=== PATIENT | female | born 1930 | race Caucasian/White ===

== ENCOUNTER 2018-09-03 14:12 | Inpatient (IN) | payer MEDICARE, OTHER ==
[~2018-09-03] VITALS: Ht 162.6 cm; Wt 80.3 kg
[~2018-09-03 14:12] MED LIST: ACET250 PO; ALBIPROI INH; Aspirin EC325 MG PO; BUME2 PO; CHOL10002 PO; CYAN1000 PO; DIGO.125 PO; DILT30 PO; DOXE0.5 PO; ESOM20 PO; HYDACE5 PO; Hydrocodone-Ap1 EA20 PO; IBUP800; LEVFLO250 PO; METH10; METH10 PO; METO100ER PO; METO2.5 PO; METO25ER PO; Macrodantin100 MG PO; Mobic15 MG PO; OMEP20ER; OXYACE5T PO; POTCHL10ER; POTCHL20ER PO; PREG50 PO; ROSU5 PO; SPIR25 PO; TRAZ100; TRAZ100 PO; XARELTO15 MG PO; [UNRECOGNIZED DRUG - OTHER]
[2018-09-03] MEDS ORDERED: Fentanyl1 EACH TD (14:31)
[2018-09-03] MEDS ORDERED: METO2.5 PO (14:31)
[2018-09-03] MEDS ORDERED: CIPR250 PO (14:31)
[2018-09-03] MEDS ORDERED: Pantoprazole So40 MG PO (14:32)
[2018-09-03] MEDS ORDERED: VENL37.5 PO (14:33)
[2018-09-03 14:55] LABS: BASOPHILS ABSOLUTE AUTO 0.02 K/mm3 (0.00-0.23); BASOPHILS PERCENT AUTO 0 % (0-2); EOSINOPHILS ABSOLUTE AUTO 0.08 K/mm3 (0.00-0.68); EOSINOPHILS PERCENT AUTO 1 % (0-6); Hematocrit 43.5 % (33.0-51.0); Hemoglobin 13.7 g/dL (11.5-16.0); IMMATURE GRAN ABSOLUTE AUTO 0.03 K/mm3 (0.00-0.10); IMMATURE GRAN PERCENT AUTO 0 % (0-1); LYMPHOCYTES ABSOLUTE AUTO 1.44 K/mm3 (0.84-5.20); LYMPHOCYTES PERCENT AUTO 16 % (21-46); MONOCYTES ABSOLUTE AUTO 0.97 K/mm3 (0.16-1.47); MONOCYTES PERCENT AUTO 11 % (4-13); Mean Corpuscular HGB 28.7 pg (26.0-34.0); Mean Corpuscular HGB Conc 31.5 g/dL (31.5-36.5); Mean Corpuscular Volume 91 fL (80-100); Mean Platelet Volume 10.5 fL (9.1-12.4); NEUTROPHILS ABSOLUTE AUTO 6.48 K/mm3 (1.96-9.15); NEUTROPHILS PERCENT AUTO 72 % (41-73); NRBC ABSOLUTE 0.04 K/mm3 (0.00-0.02); NRBC Auto 0.4 /100 WBC (0.0-0.2); Platelet Count 233 K/mm3 (150-400); RDW Coefficient Variation 14.1 % (11.7-14.2); RDW Standard Deviation 46.7 fL (35.1-46.3); Red Blood Cell Count 4.77 M/mm3 (3.80-5.20); White Blood Cell Count 9.02 K/mm3 (4.00-11.30)
[2018-09-03 15:15] LABS: Albumin, Blood 3.4 g/dL (3.4-5.0); Bilirubin, Total 1.8 mg/dL (0.1-1.0); Bun/Creatinine Ratio 28.4 (12.0-20.0); Calcium, Blood 8.5 mg/dL (8.5-10.1); Creatinine, Blood 1.41 mg/dL (0.40-1.00); Globulin, Blood 3.4 g/dL (2.2-4.0); Potassium, Blood 4.9 mmol/L (3.5-5.5); Total Protein, Blood 6.8 g/dL (6.4-8.2); Troponin I 0.037 ng/mL (0.000-0.040)
[2018-09-04 04:56] LABS: Hematocrit 40.7 % (33.0-51.0); Hemoglobin 12.7 g/dL (11.5-16.0); Mean Corpuscular HGB 28.4 pg (26.0-34.0); Mean Corpuscular HGB Conc 31.2 g/dL (31.5-36.5); Mean Corpuscular Volume 91 fL (80-100); NRBC ABSOLUTE 0.02 K/mm3 (0.00-0.02); NRBC Auto 0.2 /100 WBC (0.0-0.2); Platelet Count 236 K/mm3 (150-400); RDW Coefficient Variation 14.3 % (11.7-14.2); RDW Standard Deviation 46.8 fL (35.1-46.3); Red Blood Cell Count 4.47 M/mm3 (3.80-5.20); White Blood Cell Count 8.01 K/mm3 (4.00-11.30)
[2018-09-04 05:14] LABS: Albumin, Blood 3.1 g/dL (3.4-5.0); Bilirubin, Total 1.9 mg/dL (0.1-1.0); Bun/Creatinine Ratio 26.3 (12.0-20.0); Calcium, Blood 8.6 mg/dL (8.5-10.1); Creatinine, Blood 1.18 mg/dL (0.40-1.00); Globulin, Blood 3.1 g/dL (2.2-4.0); Potassium, Blood 4.4 mmol/L (3.5-5.5); Total Protein, Blood 6.2 g/dL (6.4-8.2)
--- NOTE | 2018-09-04 07:00 | NUR ---
SHIFT SUMMARY- PT HAS REMAINED AOX4 THROUGHOUT SHIFT WITH EPISODES OF FORGETFULLNESS- MOSTLY UPON WAKING. PLEASANT AND COOPERATIVE WITH CARE. HEART RATE HAS REMAINED TACHYCARDIC THROUGHOUT THE NIGHT, CARDIZEM DRIP TITRATED PER PROTOCOL AND CURRENTLY RUNNING AT 10 MG/HR. O2 SATS HAVE REMAINED >90% THROUGHOUT SHIFT ON RA. LUNG SOUNDS REMAINED CLEAR IN UPPER LOBES, DIMINISHED WITH CRACKLES TO RLL. PT HAS REMAINED MOSTLY INCONTINENT OF URINE, AMBULATING TO [facility] ONCE WITH ONE PERSON ASSIST AND FWW. PT IS VERY WEAK, BUT REPORTS THAT SHE IS CLOSE TO BASELINE STRENGTH. 3+ NON-PITTING EDEMA TO BLE'S. PT MEDICATED FOR PAIN TO HER CALVES ONCE THIS AM THAT DECREASED WITH ORDERED MEDICATIONS, NO SIGNS OF DVT NOTED- PT REPORTS SHE GETS FREQUENT LEG CRAMPS AT BASELINE. NO OTHER CHANGES NOTED FROM INITIAL ASSESSMENT. WILL CONTINUE TO MONITOR AND REPORT TO ONCOMING SHIFT RN. BED IN LOW POSITION, CALL LIGHT IN REACH. BED ALARM SET FOR SAFETY.
--- NOTE | 2018-09-04 08:56 | NUR ---
ECHOCARDIOGRAM COMPLETE
--- NOTE | 2018-09-04 11:12 | NUR ---
Assumed Care: Assumed care of pt at approx 0700. VSS. In no apparent sign of distress. Pt is A&Ox4 - but forgets limitations, so bed alarm is on. Pt had echocardiogram done this AM. Dr. Rivas called to state that echo results appeard very likely that the pt has a PE - notified Dr. Catalan who will take a look at the echo results, but pt is already on xarelto for her chronic Afib, and Dr. Catalan feels that it would be highly unlikely that the pt has a PE. Pt is not hypoxic and breathing is e/u on RA. Pt c/o some mild SOB this AM d/t "all of the activity". Pt on cardizem gtt at 10mg/hr. Titrated down and given PO metoprolol per orders. Attempt to titrate off cardizem per Dr. Catalan after giving PO metoprolol. Pt currently resting in bed with call light within reach. Denies any further questions, complaints or requests at this time. Will continue to monitor.
--- NOTE | 2018-09-04 17:05 | NUR ---
Shift Summary No acute changes since initial shift assessment. VSS. In no apparent sign of distress. Pt is A&Ox4, but has been forgetful at times t/o the shift. Caregiver at bedside. Cardizem recently turned off per Dr. Catalan (see EMAR). Pt denies any other acute complaints or events t/o the shift. Pt is currently resting in bed with call light within reach. Pt has had an otherwise uneventful day. Lower venous duplex scan was negative for blood clots. Pt denies any further questions, complaints or requests at this time. Will continue to monitor until report is given to raul LEMON.
[2018-09-05 05:40] LABS: HBSAG SCREEN Negative (Negative); HEP A AB, IGM Negative (Negative); HEP B CORE AB, IGM Negative (Negative); HEP C VIRUS AB <0.1 (0.0-0.9)
[2018-09-05 05:46] LABS: Anion Gap 9 mmol/L (6-16); Blood Urea Nitrogen 24 mg/dL (8-24); Bun/Creatinine Ratio 26.3 (12.0-20.0); CO2, Blood 25 mmol/L (21-32); Calcium, Blood 8.5 mg/dL (8.5-10.1); Chloride, Blood 100 mmol/L (98-108); Creatinine, Blood 0.91 mg/dL (0.40-1.00); Glomerular Filtration Rate >60 (60-); Glucose, Blood 133 mg/dL (70-99); Potassium, Blood 5.1 mmol/L (3.5-5.5); Sodium, Blood 134 mmol/L (136-145)
--- NOTE | 2018-09-05 06:34 | NUR ---
SHIFT SUMMARY- PT HAS REMAINED AOX4 THROUGHOUT SHIFT WITH SOME EPISODES OF DISORIENTATION UPON WAKING; RE-ORIENTS EASILY. VSS. PLEASANT AND COOPERATIVE WITH CARE. PT HAS REMAINED ON BEDREST THROUGHOUT THE NIGHT AND HAS SLEPT FOR MUCH OF SHIFT, WAKING EASILY FOR VITAL SIGNS, TURNING AND CHANGING. HAS REMAINED INCONTINENT OF URINE. PT WAS MEDICATED ONCE THIS AM FOR PAIN THAT HAS DECREASED WITH ORDERED MEDICATIONS. NO OTHER CHANGES FROM INITIAL ASSESSMENT, WILL CONTINUE TO MONITOR AND REPORT TO ONCOMING RN. BED IN LOW POSITION, CALL LIGHT IN REACH.
--- NOTE | 2018-09-05 19:15 | NUR ---
SHIFT SUMMARY PT WAS UP IN CHAIR FOR MEALS. MEDICATED FOR PAIN X1 THIS SHIFT. PT DID SLEEP A LOT TODAY. OCCUPATIONAL THERAPY ORDERED THIS AFTERNOON BUT PT WAS NOT SEEN YET. NO ACUTE CHANGES THIS SHIFT. REPORT GIVEN TO ELVIRA LEMON. CALL LIGHT IN REACH.
--- NOTE | 2018-09-06 08:23 | NUR ---
NURSING PCU DAYSHIFT: Assumed care of pt at approx 0700. Alert, forgetful at times, very pleasant and fairly cooperative w/care, TYONEK. Skin is fragile w/scattered bruising noted to UE's, LE's red w/chronic lymphedema, c/o numbness/tingling of all ext's, general weakness noted. Tele in place, afib, BP stable, 1-2+ BLE edema, no c/o CP/pressure. L/S w/fine bibasilar crackles, respirations shallow, O2 sat upper 90's on RA. Abd SNT, BT+, incontinent of urine, attends in place. 20g PIV present in RUE, s/l. No s/s of acute distress at this time. Pt currently sitting up in bed having breakfast. Denies any current needs or questions regarding plan of care. Awaiting rounding from PMD, call light in reach, bed alarm set for safety purposes. Cont to monitor for any changes.
--- NOTE | 2018-09-06 18:52 | NUR ---
NURSING PCU DAYSHIFT SUMMARY: No acute changes noted t/o the shift. Pt has been in good spirits and cooperative w/care. VS remained stable, cardiac and respiratory status unchanged. Worked w/O.T., weakness noted and pt is not yet at baseline, discharge to SNF recommended. PMD notified of O.T. recommendation, order for P.T. received, planned for eval tomorrow. Son at bedside intermittently t/o the shift, caregiver at bedside t/o the afternoon. Plan of care discussed and questions answered. Pt and caregiver deny any questions/needs at this time, call light in reach, rpt provided to NOC RN.
--- NOTE | 2018-09-07 05:29 | NUR ---
SHIFT SUMMARY PT ALERT TO SELF AND FOLLOWING DIRECTIONS. PT HAS MILD CONFUSION UPON WAKING, BUT REORIENTS QUICKLY. VS STABLE. HR AFIB RATE IN THE 70'S-90'S. PT ABLE TO REPOSITION HERSELF IN BED INDEPENDENTLY. PT HAD ONE INCONTINENT VOID THIS SHIFT. ATTENDS CLEAN AND DRY AT THIS TIME. NO CHANGES SINCE INITIAL ASSESSMENT. WILL CONTINUE TO MONITOR AND REPORT TO ONCOMING RN. CALL LIGHT IN REACH.
--- NOTE | 2018-09-07 08:00 | NUR ---
NURSING PCU DAYSHIFT: Assumed care of pt at approx 0700. Alert, fairly oriented though forgetful at times, pleasant and cooperative w/care, KLAMATH. Skin is fragile w/scattered bruising noted to UE's, no breakdown noted, chronic BLE lymphedema. C/O 8/10 pain in back and "all over" which is being treated w/meds as ordered. Tele in place, afib, HR 120's, BP stable, no c/o CP/pressure, 1+ BLE edema. L/S w/fine bibasilar crackles, O2 sat sat stable on RA, respirations shallow, c/o mild dyspnea. Abd SNT, BT+, incontinent of urine, attends in place. PIV x1, s/l. No s/s of acute distress at this time. Pt is medical status, awaiting bed assignment. Currently sitting up in bed having breakfast, tolerating well. Discussed deep breathing exercises. Awaiting rounding from PMD, call light in reach, cont to monitor for any changes.
--- NOTE | 2018-09-07 12:30 | NUR ---
NURSING PCU TRANSFER SUMMARY: No acute changes noted t/o the a.m., seen by PMD, new d/o received. Holding new digoxin order at this time until callback received from PMD per PMD v/o. Pt worked w/PT/OT this a.m., weak and impulsive w/ambulation though has not attempted to get OOB. Bed alarm remains set for safety purposes. Medical floor room assignment received, awaiting telephone report to accepting RN. Pt denies any questions/needs, caregiver notified of update regarding transfer. Cont to monitor until xfer is completed.
--- NOTE | 2018-09-07 13:00 | NUR ---
PT ARRIVED FROM PCU 15 TO ROOM 340 WITH CAREGIVER AT BEDSIDE. PT SETTLED IN, ORIENTED TO ROOM AND CALL SYSTEM. BED ALARM ARMED AND CALL LIGHT IN REACH. NO NEEDS OR WANTS AT THIS TIME. WILL MONITOR.
--- NOTE | 2018-09-07 18:48 | NUR ---
PT SITTING ON EDGE OF BED EATING HER DINNER AND BED IS ALARMED. NO ACUTE CHANGES SINCE ARRIVAL TO ROOM. NO C/O PAIN. WILL CONTINUE TO MONITOR AND REPORT TO ONCOMING RN
[2018-09-08 05:49] LABS: Magnesium, Blood 1.8 mg/dL (1.6-2.4)
[2018-09-08 06:08] LABS: Alanine Aminotransfer (ALT/SGP 92 U/L (12-78); Albumin, Blood 2.8 g/dL (3.4-5.0); Albumin/Globulin Ratio 0.8 (0.8-1.8); Alk Phos 118 U/L (50-136); Anion Gap 8 mmol/L (6-16); Aspartate Aminotrans (AST/SGOT 24 U/L (12-37); Bilirubin, Total 1.2 mg/dL (0.1-1.0); Blood Urea Nitrogen 26 mg/dL (8-24); Bun/Creatinine Ratio 28.3 (12.0-20.0); CO2, Blood 32 mmol/L (21-32); Calcium, Blood 8.7 mg/dL (8.5-10.1); Chloride, Blood 96 mmol/L (98-108); Creatinine, Blood 0.92 mg/dL (0.40-1.00); Digoxin (Lanoxin) 1.47 ug/mL (0.80-2.00); Globulin, Blood 3.3 g/dL (2.2-4.0); Glomerular Filtration Rate >60 (60-); Glucose, Blood 100 mg/dL (70-99); Phosphorus, Blood 3.2 mg/dL (2.5-4.9); Potassium, Blood 4.1 mmol/L (3.5-5.5); Sodium, Blood 136 mmol/L (136-145); Total Protein, Blood 6.1 g/dL (6.4-8.2)
--- NOTE | 2018-09-08 07:47 | NUR ---
a+o +2, call light in reach able to make needs known, tele, [place], room air, incontanant, saline locked, walking rounds completed with day staff
[2018-09-08] MEDS ORDERED: ASPI81CH PO (17:56)
[2018-09-08] MEDS ORDERED: LANOXIN125 MCG PO (17:58)
--- NOTE | 2018-09-08 18:56 | NUR ---
[facility]. ALL IV LINES D/C'D
--- NOTE | 2018-09-08 19:22 | NUR ---
PATIENT DISCHARGED TO [facility] NECK, TRANSPORTED VIA [facility].
== END 2018-09-08 19:12 | DRG 683 ==
LOC: ER 14:12 → PCU 16:21 → MEDS 09-07 12:55
PROVIDERS: Emergency Medicine; Internal Medicine; ADMIT Internal Medicine
DX: N17.9 Acute kidney failure, unspecified (principal); I50.32 Chronic diastolic (congestive) heart failure; E87.1 Hypo-osmolality and hyponatremia; I48.2 Chronic atrial fibrillation; I11.0 Hypertensive heart disease with heart failure; E78.5 Hyperlipidemia, unspecified; I08.2 Rheumatic disorders of both aortic and tricuspid valves; E11.9 Type 2 diabetes mellitus without complications; G31.84 Mild cognitive impairment of uncertain or unknown etiology; Q82.0 Hereditary lymphedema; Z23 Encounter for immunization; Z88.5 Allergy status to narcotic agent; Z88.0 Allergy status to penicillin; Z88.8 Allergy status to other drugs, medicaments and biological substances; Z79.899 Other long term (current) drug therapy
CPT/HCPCS: 36415; 71045; 80048; 80053; 80074; 80162; 82947; 83735; 84100; 84484; 85025; 85027; 90686; 93005; 93010; 93306; 93970; 96361; 96374; 97162; 97166; 97530; 97535; 99285-25; G0008; G0515; J1160; J2405; J7120

== ENCOUNTER → 2018-12-25 | Outpatient (CLI) | payer MEDICARE, OTHER ==
[~2018-12-25] MED LIST changes: +ASPI81CH PO; +CIPR250 PO; +Fentanyl1 EACH TD; +LANOXIN125 MCG PO; +Pantoprazole So40 MG PO; +VENL37.5 PO
[2018-12-25 17:15] LABS: Percent Saturation 10.8 % (15.0-50.0)
== END | disposition home or self-care (01) ==
LOC: LAB SHORT 15:35 → LAB 15:35
PROVIDERS: Internal Medicine Hematology & Oncology
DX: D51.8 Other vitamin B12 deficiency anemias (principal); R53.81 Other malaise; R53.83 Other fatigue
CPT/HCPCS: 82607; 82746; 83540; 83550

== ENCOUNTER 2019-04-12 15:01 | Emergency (ER) | payer MEDICARE, OTHER ==
[~2019-04-12] VITALS: Ht 175.3 cm; Wt 106.6 kg
[2019-04-12] MEDS ORDERED: Bumetanide1 MG PO (15:13)
[2019-04-12] MEDS ORDERED: LANOXIN125 MC1 PO (15:14)
[2019-04-12] MEDS ORDERED: VENL37.5ER PO (15:14)
[2019-04-12] MEDS ORDERED: METO100ER PO (15:15)
[2019-04-12] MEDS ORDERED: Zantac150 MG PO (15:16)
[2019-04-12] MEDS ORDERED: TRAZ100 PO (15:16)
[2019-04-12] MEDS ORDERED: Hydrocodone-Ap1 EA20 PO (15:16)
[2019-04-12] MEDS ORDERED: POTCHL20ER PO (15:16)
[2019-04-12] MEDS ORDERED: XARELTO20 MG PO (15:17)
[2019-04-12] MEDS ORDERED: CALC.25 PO (15:17)
[2019-04-12] MEDS ORDERED: Ferus150 MG PO (15:17)
[2019-04-12] MEDS ORDERED: Fentanyl1 EACH TOP (15:18)
[2019-04-12] MEDS ORDERED: VITAMIN D310000 UNI1 PO (15:19)
[2019-04-12] MEDS ORDERED: Vitamin B-121000 MCG PO (15:19)
[2019-04-12 16:11] LABS: BASOPHILS ABSOLUTE AUTO 0.02 K/mm3 (0.00-0.23); BASOPHILS PERCENT AUTO 0 % (0-2); EOSINOPHILS ABSOLUTE AUTO 0.01 K/mm3 (0.00-0.68); EOSINOPHILS PERCENT AUTO 0 % (0-6); Hematocrit 40.9 % (33.0-51.0); IMMATURE GRAN ABSOLUTE AUTO 0.03 K/mm3 (0.00-0.10); IMMATURE GRAN PERCENT AUTO 0 % (0-1); LYMPHOCYTES ABSOLUTE AUTO 1.22 K/mm3 (0.84-5.20); LYMPHOCYTES PERCENT AUTO 13 % (21-46); MONOCYTES ABSOLUTE AUTO 0.84 K/mm3 (0.16-1.47); MONOCYTES PERCENT AUTO 9 % (4-13); Mean Corpuscular HGB 29.3 pg (26.0-34.0); Mean Corpuscular HGB Conc 31.8 g/dL (31.5-36.5); Mean Corpuscular Volume 92 fL (80-100); Mean Platelet Volume 10.5 fL (9.1-12.4); NEUTROPHILS ABSOLUTE AUTO 7.46 K/mm3 (1.96-9.15); NEUTROPHILS PERCENT AUTO 78 % (41-73); Platelet Count 256 K/mm3 (150-400); RDW Coefficient Variation 14.3 % (11.7-14.2); RDW Standard Deviation 48.8 fL (35.1-46.3); Red Blood Cell Count 4.43 M/mm3 (3.80-5.20); White Blood Cell Count 9.58 K/mm3 (4.00-11.30)
[2019-04-12 16:25] LABS: International Normalized Ratio 1.37; Prothrombin Time Results 14.1 Sec (9.7-11.5)
[2019-04-12 16:38] LABS: Source, Urine Clean Catch
[2019-04-12 16:44] LABS: Bilirubin, Urine Neg (Neg); Blood, Urine 1+ (Neg); Glucose Qualitative, Urine Neg (Neg); Ketones, Urine Neg (Neg); Leukocyte Esterase, Urine 2+ (Neg); Nitrite, Urine Pos (Neg); Protein, Urine Neg (Neg); Urobilinogen, Urine NORM (Normal); pH, Urine 6.5 (5.0-8.0)
[2019-04-12 16:47] LABS: Alanine Aminotransfer (ALT/SGP 16 U/L (12-78); Albumin, Blood 3.3 g/dL (3.4-5.0); Albumin/Globulin Ratio 0.9 (0.8-1.8); Alk Phos 127 U/L (50-136); Anion Gap 5 mmol/L (6-16); Aspartate Aminotrans (AST/SGOT 32 U/L (12-37); Bilirubin, Total 0.8 mg/dL (0.1-1.0); Blood Urea Nitrogen 35 mg/dL (8-24); Bun/Creatinine Ratio 30.7 (12.0-20.0); CO2, Blood 34 mmol/L (21-32); CPK Creatine Kinase 607 U/L (26-193); Calcium, Blood 9.2 mg/dL (8.5-10.1); Chloride, Blood 98 mmol/L (98-108); Creatinine, Blood 1.14 mg/dL (0.40-1.00); Globulin, Blood 3.8 g/dL (2.2-4.0); Glomerular Filtration Rate 48 (60-); Glucose, Blood 151 mg/dL (70-99); Potassium, Blood 3.7 mmol/L (3.5-5.5); Sodium, Blood 137 mmol/L (136-145); Total Protein, Blood 7.1 g/dL (6.4-8.2)
[2019-04-12 16:48] LABS: Appearance, Urine Clear (Clear); Color, Urine Yellow (P-Yellow)
[2019-04-12 16:56] LABS: Bacteria Many /hpf; Hyaline Casts 0-2 /lpf (0-2); Squamous Epithelial Cells Few /hpf (Few)
[2019-04-12 17:08] LABS: Creatine Kinase MB 4.6 ng/mL (0.0-3.6); Creatine Kinase MB Index 0.8 (0.0-4.0)
[2019-04-12] MEDS ORDERED: Macrobid 100 M100 MG PO (19:46)
== END 2019-04-12 20:12 | disposition home or self-care (01) ==
LOC: ER 15:01
PROVIDERS: Physician Assistant
DX: S09.90XA Unspecified injury of head, initial encounter (principal); S70.11XA Contusion of right thigh, initial encounter; N30.90 Cystitis, unspecified without hematuria; R79.1 Abnormal coagulation profile; I11.0 Hypertensive heart disease with heart failure; I50.9 Heart failure, unspecified; J45.909 Unspecified asthma, uncomplicated; Z88.0 Allergy status to penicillin; Z88.5 Allergy status to narcotic agent; Z88.8 Allergy status to other drugs, medicaments and biological substances; Z79.899 Other long term (current) drug therapy; Z79.01 Long term (current) use of anticoagulants; W05.0XXA Fall from non-moving wheelchair, initial encounter
CPT/HCPCS: 36415; 70450; 73030; 73552; 73620; 80053; 80162; 81001; 82550; 82553; 85025; 85610; 87077; 87086; 87186; 93005; 93010; 96360; 99284-25; J7030; P9612

== ENCOUNTER 2019-08-14 10:13 | Emergency (ER) | payer MEDICARE, OTHER ==
[~2019-08-14] VITALS: Ht 170.2 cm; Wt 72.6 kg
[~2019-08-14 10:13] MED LIST changes: +Bumetanide1 MG PO; +CALC.25 PO; +Fentanyl1 EACH TOP; +Ferus150 MG PO; +LANOXIN125 MC1 PO; +Macrobid 100 M100 MG PO; +VENL37.5ER PO; +VITAMIN D310000 UNI1 PO; +Vitamin B-121000 MCG PO; +XARELTO20 MG PO; +Zantac150 MG PO
[2019-08-14 11:12] LABS: BASOPHILS ABSOLUTE AUTO 0.02 K/mm3 (0.00-0.23); BASOPHILS PERCENT AUTO 0 % (0-2); EOSINOPHILS ABSOLUTE AUTO 0.07 K/mm3 (0.00-0.68); EOSINOPHILS PERCENT AUTO 1 % (0-6); Hematocrit 42.8 % (33.0-51.0); Hemoglobin 13.7 g/dL (11.5-16.0); IMMATURE GRAN ABSOLUTE AUTO 0.01 K/mm3 (0.00-0.10); IMMATURE GRAN PERCENT AUTO 0 % (0-1); LYMPHOCYTES ABSOLUTE AUTO 1.21 K/mm3 (0.84-5.20); LYMPHOCYTES PERCENT AUTO 18 % (21-46); MONOCYTES PERCENT AUTO 7 % (4-13); Mean Corpuscular HGB 29.3 pg (26.0-34.0); Mean Corpuscular Volume 92 fL (80-100); Mean Platelet Volume 9.8 fL (9.1-12.4); NEUTROPHILS PERCENT AUTO 74 % (41-73); Platelet Count 275 K/mm3 (150-400); RDW Coefficient Variation 13.4 % (11.7-14.2); RDW Standard Deviation 45.2 fL (35.1-46.3); Red Blood Cell Count 4.67 M/mm3 (3.80-5.20); White Blood Cell Count 6.91 K/mm3 (4.00-11.30)
[2019-08-14 11:14] LABS: Source, Urine Catheter
[2019-08-14 11:17] LABS: Bilirubin, Urine Neg (Neg); Blood, Urine 2+ (Neg); Glucose Qualitative, Urine Neg (Neg); Ketones, Urine Neg (Neg); Leukocyte Esterase, Urine 3+ (Neg); Nitrite, Urine Neg (Neg); Protein, Urine Neg (Neg); Urobilinogen, Urine NORM (Normal)
[2019-08-14 11:30] LABS: Appearance, Urine Hazy (Clear); Color, Urine Yellow (P-Yellow)
[2019-08-14 11:31] LABS: Bacteria Many /hpf; Red Blood Cells, Urine 0-2 /hpf (0-2); Squamous Epithelial Cells Few /hpf (Few)
[2019-08-14 11:32] LABS: Alanine Aminotransfer (ALT/SGP 14 U/L (12-78); Albumin, Blood 3.2 g/dL (3.4-5.0); Albumin/Globulin Ratio 0.9 (0.8-1.8); Alk Phos 109 U/L (50-136); Anion Gap 4 mmol/L (6-16); Aspartate Aminotrans (AST/SGOT 19 U/L (12-37); Bilirubin, Total 0.5 mg/dL (0.1-1.0); Blood Urea Nitrogen 16 mg/dL (8-24); Bun/Creatinine Ratio 20.8 (12.0-20.0); CO2, Blood 38 mmol/L (21-32); Calcium, Blood 9.3 mg/dL (8.5-10.1); Chloride, Blood 98 mmol/L (98-108); Creatinine, Blood 0.77 mg/dL (0.40-1.00); Globulin, Blood 3.7 g/dL (2.2-4.0); Glomerular Filtration Rate >60 (60-); Glucose, Blood 122 mg/dL (70-99); Potassium, Blood 3.3 mmol/L (3.5-5.5); Sodium, Blood 140 mmol/L (136-145); Total Protein, Blood 6.9 g/dL (6.4-8.2)
[2019-08-14] MEDS ORDERED: NITR100CA PO (11:50)
== END 2019-08-14 12:55 | disposition home or self-care (01) ==
LOC: ER 10:13
PROVIDERS: Emergency Medicine
DX: N39.0 Urinary tract infection, site not specified (principal); I11.0 Hypertensive heart disease with heart failure; I50.9 Heart failure, unspecified; J45.909 Unspecified asthma, uncomplicated; D64.9 Anemia, unspecified; Z88.0 Allergy status to penicillin; Z88.5 Allergy status to narcotic agent; Z88.8 Allergy status to other drugs, medicaments and biological substances; Z79.899 Other long term (current) drug therapy; Z79.01 Long term (current) use of anticoagulants; W18.30XA Fall on same level, unspecified, initial encounter
CPT/HCPCS: 80053; 81001; 85025; 87077; 87086; 87186; 93005; 93010; 99284-25; J7030

== ENCOUNTER → 2019-12-04 | Outpatient (CLI) | payer MEDICARE, OTHER ==
[~2019-12-04] MED LIST changes: +NITR100CA PO
== END ==
LOC: LAB 11:03 → LAB SHORT 11:03
DX: N83.8 Other noninflammatory disorders of ovary, fallopian tube and broad ligament (principal); R19.09 Other intra-abdominal and pelvic swelling, mass and lump
CPT/HCPCS: 86304

== ENCOUNTER → 2020-01-14 | Outpatient (CLI) | payer MEDICARE, OTHER ==
[2020-01-14 16:49] LABS: BASOPHILS ABSOLUTE AUTO 0.04 K/mm3 (0.00-0.23); BASOPHILS PERCENT AUTO 0 % (0-2); EOSINOPHILS ABSOLUTE AUTO 0.04 K/mm3 (0.00-0.68); EOSINOPHILS PERCENT AUTO 0 % (0-6); Hemoglobin 13.3 g/dL (11.5-16.0); IMMATURE GRAN ABSOLUTE AUTO 0.03 K/mm3 (0.00-0.10); IMMATURE GRAN PERCENT AUTO 0 % (0-1); LYMPHOCYTES ABSOLUTE AUTO 1.35 K/mm3 (0.84-5.20); LYMPHOCYTES PERCENT AUTO 14 % (21-46); MONOCYTES ABSOLUTE AUTO 0.79 K/mm3 (0.16-1.47); MONOCYTES PERCENT AUTO 8 % (4-13); Mean Corpuscular HGB 27.6 pg (26.0-34.0); Mean Corpuscular HGB Conc 30.9 g/dL (31.5-36.5); Mean Corpuscular Volume 89 fL (80-100); Mean Platelet Volume 10.5 fL (9.1-12.4); NEUTROPHILS ABSOLUTE AUTO 7.18 K/mm3 (1.96-9.15); NEUTROPHILS PERCENT AUTO 76 % (41-73); Platelet Count 353 K/mm3 (150-400); RDW Coefficient Variation 14.9 % (11.7-14.2); RDW Standard Deviation 48.6 fL (35.1-46.3); Red Blood Cell Count 4.82 M/mm3 (3.80-5.20); White Blood Cell Count 9.43 K/mm3 (4.00-11.30)
[2020-01-14 17:26] LABS: Albumin, Blood 2.8 g/dL (3.4-5.0); Albumin/Globulin Ratio 0.7 (0.8-1.8); Alk Phos 125 U/L (50-136); Anion Gap 9 mmol/L (6-16); Aspartate Aminotrans (AST/SGOT 16 U/L (12-37); Bilirubin, Direct 0.5 mg/dL (0.0-0.3); Bilirubin, Indirect 0.4 mg/dL (0.1-0.7); Bilirubin, Total 0.9 mg/dL (0.1-1.0); Blood Urea Nitrogen 22 mg/dL (8-24); CHOL/HDL RATIO 3.3; CO2, Blood 32 mmol/L (21-32); Calcium, Blood 8.5 mg/dL (8.5-10.1); Chloride, Blood 92 mmol/L (98-108); Cholesterol 151 mg/dL (50-200); Globulin, Blood 4.1 g/dL (2.2-4.0); Glucose, Blood 124 mg/dL (70-99); HDL Cholesterol 46 mg/dL (>39); Low Density Lipoprotein Chol 90 mg/dL (0-110); Phosphorus, Blood 1.8 mg/dL (2.5-4.9); Potassium, Blood 3.3 mmol/L (3.5-5.5); Sodium, Blood 133 mmol/L (136-145); Total Protein, Blood 6.9 g/dL (6.4-8.2); Triglycerides 74 mg/dL (30-160); Very Low Density Lipoprot Chol 14 mg/dL (6-32)
[2020-01-14 17:33] LABS: Alanine Aminotransfer (ALT/SGP 11 U/L (12-78); Bun/Creatinine Ratio 25.4 (12.0-20.0); Creatinine, Blood 0.87 mg/dL (0.40-1.00); Glomerular Filtration Rate >60 (60-)
== END | disposition home or self-care (01) ==
LOC: LAB SHORT 16:36 → LAB 16:36
PROVIDERS: Nurse Practitioner Family
DX: N18.9 Chronic kidney disease, unspecified (principal); R19.09 Other intra-abdominal and pelvic swelling, mass and lump
CPT/HCPCS: 80053; 80061; 82248; 84100; 84443; 85025